=== PATIENT | male | born 1940 | race Caucasian/White ===

== ENCOUNTER 2021-02-22 13:57 | Emergency (ER) | payer MEDICARE, OTHER ==
[2021-02-22 15:10] LABS: RED BLOOD COUNT 4.4 M/UL (4.20-5.50); WHITE BLOOD COUNT 9.8 K/UL (4.5-11.0)
[2021-02-22] MEDS ORDERED: HYDROCODON-ACE1 EAC4 PO (18:19)
== END 2021-02-22 19:00 | disposition home or self-care (01) ==
LOC: ER1 13:57 → EDBD 13:57 → ER1 19:00
PROVIDERS: Emergency Medicine
DX: I95.1 Orthostatic hypotension (principal); I25.2 Old myocardial infarction; I10 Essential (primary) hypertension; Z20.822 Contact with and (suspected) exposure to COVID-19
CPT/HCPCS: 70450; 71045; 80053; 81001; 82962; 85025; 93005; 99284; U0002